=== PATIENT | male | born 1965 | race Caucasian/White ===

== ENCOUNTER → 2019-02-07 | Outpatient (CLI) | payer OTHER | END | disposition home or self-care (01) | LOC: LABWHC1 11:08 | PROVIDERS: ATTEND Orthopaedic Surgery | DX: E55.9 Vitamin D deficiency, unspecified (principal); M79.641 Pain in right hand; S67.21XD Crushing injury of right hand, subsequent encounter; S62.634D Displaced fracture of distal phalanx of right ring finger, subsequent encounter for fracture with routine healing | CPT/HCPCS: 36415; 82306 ==

== ENCOUNTER → 2020-09-20 | Outpatient (CLI) | payer BC ==
--- NOTE | 2020-09-20 22:15 | CT ---
EXAMINATION TYPE: CT abdomen pelvis wo con DATE OF EXAM: 09/20/2020 COMPARISON: None INDICATION: Gross hematuria DLP: 3 at 8.80 mGycm, Automated exposure control for dose reduction was used. CONTRAST: 0 mL of Isovue 300. Study performed without Oral Contrast TECHNIQUE: Axial images were obtained from above the diaphragm to the pubic rami in the axial plane a t 5 mm thick sections. Reconstructed images are reviewed on the computer in the coronal plane. FINDINGS: Limited CT sections are obtained the lung bases. The lung bases are clear. Hiatal hernia is present . CT ABDOMEN: Liver: Normal Spleen: Normal Pancreas: Normal Adrenal glands: The adrenal glands are normal. Gallbladder: Normal Kidneys: No masses are evident. No hydronephrosis is present. No cysts are present. No renal stone s are evident. Aorta: Normal Inferior vena cava: Normal. CT PELVIS: Loops of bowel within the abdomen and pelvis are normal. The studies lateral contrast limiting farhat wel evaluation. Fecal debris is within the descending colon and sigmoid colon. Appendix: Normal as visualized. Urinary bladder: There is some rounded density which is isodense with the fluid. Peripheral calcifica tion is present. This appears to be at the left ureterovesical junction and is estimated to measure 3 .6 x 2.8 cm. Additional workup with cystoscopy is recommended. Genitourinary structures: Prostate is normal Osseous structures: No suspicious lytic or sclerotic lesions. No suspicious adenopathy is identified IMPRESSIONS: 1. Subtle left ureterovesical junction region of the urinary bladder mass with some peripheral calci fication. Findings are suspicious for neoplasm. Cystoscopy is recommended for additional evaluation. A Yellow level critical message alert has been initiated for Juan Banuelos MD via the [facility] System on 09/20/2020 10:13 PM. This message alert has been sent to Adrien Wu via the preferences provided by the clinician for the receipt of Radiology Critical Findings. Anika ReserveOut ID [id number].
== END | disposition home or self-care (01) ==
LOC: RADCTMAIN 08:57
PROVIDERS: ATTEND Urology
DX: R31.0 Gross hematuria (principal); N32.89 Other specified disorders of bladder
CPT/HCPCS: 74176

== ENCOUNTER → 2021-08-16 | Outpatient (CLI) | payer BC ==
--- NOTE | 2021-08-16 09:09 | CT ---
EXAMINATION TYPE: CT abdomen pelvis wo con DATE OF EXAM: 08/16/2021 HISTORY: Malignant neoplasm of posterior wall of bladder. CT DLP: 343.4 mGycm. Automated Exposure Control for Dose Reduction was Utilized. TECHNIQUE: CT scan of the abdomen and pelvis is performed without oral or IV contrast. COMPARISON: Prior CT September 20, 2020 FINDINGS: Within the limitations of a non-contrast study, the following observations are made. LUNG BASES: No new nodules. LIVER/GB: No significant abnormality is appreciated. PANCREAS: No significant abnormality is seen. SPLEEN: No significant abnormality is seen. ADRENALS: No significant abnormality is seen. KIDNEYS: No renal stones or hydronephrosis seen bilaterally. Prior visualized partially calcified mas s in the posterior bladder wall is now not clearly identified. BOWEL: Suboptimal evaluation without enteric contrast. No suspicious small or large bowel dilatation. Low-lying cecum into the right pelvis. A few diverticula in the sigmoid colon. GENITAL ORGANS: Mildly enlarged prostate bulging on bladder base appears slightly more prominent from prior LYMPH NODES: No greater than 1cm abdominal or pelvic lymph nodes are appreciated. OSSEOUS STRUCTURES: Mild to moderate multilevel spurring and disc space narrowing. OTHER: Tiny fat-containing umbilical hernia. IMPRESSION: Nonvisualized bladder mass or neoplasm on the current study consistent with presumed succ essful interval treatment despite patient denying history of chemotherapy. Urologist office confirm ольга monk has been receiving intravesicular chemotherapy.
== END | disposition home or self-care (01) ==
LOC: RADCTMAIN 08:12
PROVIDERS: ATTEND Urology
DX: C67.4 Malignant neoplasm of posterior wall of bladder (principal)
CPT/HCPCS: 74176

== ENCOUNTER → 2022-10-08 | Outpatient (CLI) | payer BC ==
[2022-10-08 14:38] LABS: African American GFR (CKD) 88 (>60 ml/min/1.73 sqM); Blood Urea Nitrogen 15 mg/dL (9-20); Non-African American GFR(CKD) 76 (>60 ml/min/1.73 sqM)
--- NOTE | 2022-10-09 08:53 | CT ---
EXAMINATION TYPE: CT urogram wo/w con DATE OF EXAM: 10/08/2022 COMPARISON: 08/16/2021 INDICATION: F/U BLADDER CA. DLP: mGycm, Automated exposure control for dose reduction was used. CONTRAST: 100 mL of Isovue 300. Study performed without Oral Contrast TECHNIQUE: Axial images were obtained from above the diaphragm to the pubic rami in the axial plane a t 5 mm thick sections. Reconstructed images are reviewed on the computer in the coronal plane. FINDINGS: Limited CT sections are obtained the lung bases. The lung bases are clear. CT ABDOMEN: Liver: Normal Spleen: Normal Pancreas: Normal Adrenal glands: The adrenal glands are normal. Gallbladder: Normal Kidneys: No masses are evident. There is some mild prominence of the left renal collecting system. Mi ld prominence left ureter is present. This extends the urinary bladder. Some mild wall thickening eleazar ng the lateral left urinary bladder wall may be present. Correlate with the patient's history. No bianka al cysts are present. Early and delayed images were obtained through the renal collecting system. CT urogram: Early delayed and marked delayed images were obtained through the kidneys following contr ast administration. Left ureter is somewhat prominent no extraluminal or intramural defects within th e ureters are evident. Aorta: Normal Inferior vena cava: Normal. CT PELVIS: Loops of bowel within the abdomen and pelvis are normal. There are loops of bowel which are incom pletely distended or lack oral contrast limiting their evaluation. Appendix: Normal as visualized. Urinary bladder: Some mild diffuse wall thickening along the left urinary bladder wall may be present . No underlying discrete nodularity is identified. Genitourinary structures: Prostate is somewhat prominent. Osseous structures: No suspicious lytic or sclerotic lesions are evident. IMPRESSIONS: 1. There is mild hydronephrosis and hydroureter of the left renal collecting system. Infundibula are somewhat prominent. No intraluminal defect is evident. This extends to the area of some subtle wall thickening of the urinary bladder which may include the ureteral vesicle junction. 2. Right renal collecting system is visualized appears unremarkable. 3. Subtle wall thickening along the right lateral urinary bladder wall can be related to the patient' s reported urinary bladder cancer. No increase from the comparison is evident.
== END | disposition home or self-care (01) ==
LOC: RADCTMAIN 13:37
PROVIDERS: ATTEND Urology
DX: C67.4 Malignant neoplasm of posterior wall of bladder (principal); C67.9 Malignant neoplasm of bladder, unspecified; N13.30 Unspecified hydronephrosis; N32.89 Other specified disorders of bladder; N13.4 Hydroureter
CPT/HCPCS: 82565; 84520; 74178; 36415; 74400; Q9967